=== PATIENT | female | born 1955 | race Two or more races ===

== ENCOUNTER → 2018-10-03 | Emergency (ER) | payer OTHER ==
[~2018-10-03] VITALS: Ht 160 cm; Wt 56.7 kg
[~2018-10-03] MED LIST: ASA81 MG PO; MUCINEX600 MG PO; OSEL75CA PO; PROAIR HFA8.5 GM; SIMVASTATIN20 MG PO; TESSALON PERLE100 MG PO; VITAMIN D-32000 UNIT PO; ZANTAC150 MG PO; ZOCOR40 MG PO
== END | disposition home or self-care (01) ==
LOC: ER 10:26 → EDBD 11:00 → ER 11:00
DX: J09.X2 Influenza due to identified novel influenza A virus with other respiratory manifestations (principal); B34.9 Viral infection, unspecified